=== PATIENT | female | born 1995 ===

== ENCOUNTER 2019-07-30 08:50 | Day surgery (SDC) | payer OTHER ==
[~2019-07-30 08:50] MED LIST: Acetaminophen TAB* 325 MG PO ONE; Buffered Lidocaine 1% SYRIN* 1 ML/SYRINGE INTRADERM ONE; Famotidine IV* 10 MG/ML 2 ML (20 mg) IV ONE; Gabapentin CAP(*) 300 MG PO ONE; Lactated Ringers 1000 ML Bag* 1,000 ML IV SCH
[2019-07-30] MEDS ORDERED: Gabapentin CAP(*) 300 MG ONE (09:06)
[2019-07-30] MEDS ORDERED: Acetaminophen TAB* 325 MG ONE (09:06)
[2019-07-30] MEDS ORDERED: Famotidine IV* 10 MG/ML 2 ML (20 mg) ONE (09:07)
[2019-07-30] MEDS ORDERED: ceFAZolin 2 GM PREMIX in ORs 2 GM/50 ML BAG ONE (09:07)
[2019-07-30] MEDS ORDERED: fentaNYL* 50 MCG/ML 2 ML VIAL (100 MCG VIAL) ONE (09:58)
[2019-07-30] MEDS ORDERED: Midazolam* 1 MG/ML 2 ML VIAL (2 MG) ONE (09:58)
[2019-07-30] MEDS ORDERED: Bupivacaine 0.5% SDV PF* 30ML VIAL ONE ×2 (10:17→10:40)
[2019-07-30] MEDS ORDERED: Lidocaine 2% PF * 5 ML VIAL ONE (10:43)
[2019-07-30] MEDS ORDERED: Propofol* 10 MG/ML 20 ML BTL ONE (10:56)
[2019-07-30] MEDS ORDERED: Ketorolac INJ* 30 MG/ML 1 ML VIAL ONE (10:56)
[2019-07-30] MEDS ORDERED: Ondansetron INJ* 2 MG/ML VIAL ONE (10:56)
[2019-07-30] MEDS ORDERED: Dexamethasone IV* 4 MG/ML 1 ML (4 MG) ONE (10:56)
[2019-07-30 12:16] VITALS: BP 123/75
[2019-07-30] MEDS ORDERED: Ondansetron INJ* 2 MG/ML VIAL IV PRN (13:50)
[2019-07-30] MEDS ORDERED: Naloxone* 0.4 MG/ML 1 ML VIAL IV PRN (13:50)
--- NOTE | 2019-07-30 20:47 | OP ---
DATE OF OPERATION: 07/30/19 [facility] DATE OF : 89 SURGEON: Chantel Bermeo MD PRIVATE WATCHMAN: LINDA Velazquez ANESTHESIA: General. PRE-OP DIAGNOSIS: Ulnar nerve compression at the right elbow. POST-OP DIAGNOSIS: Ulnar nerve compression at the right elbow. OPERATIVE PROCEDURE: Ulnar nerve decompression, right elbow. INDICATIONS: Ayesha is a 24-year-old female who has numbness in the ulnar nerve distribution of her right hand. She has failed conservative treatment with physical therapy and splinting. She presents for an ulnar nerve decompression at the right elbow. ESTIMATED BLOOD LOSS: Zero. TOURNIQUET TIME: About 25 minutes. DESCRIPTION OF PROCEDURE: The patient was brought to the operating room, was given a general anesthetic and placed in the supine position on the operating table with a tourniquet around her right upper arm. The skin of her right upper extremity was prepped and draped in the usual sterile fashion. The upper extremity was exsanguinated and the tourniquet elevated to 250 mmHg. The area of the incision was infiltrated with 10 cc of Marcaine 0.5% plain. A curvilinear incision was made on the ulnar aspect of the elbow centered between the medial epicondyle and the tip of the olecranon process. We dissected bluntly through the subcutaneous tissue down to the ulnar nerve at the cubital tunnel. The nerve was carefully dissected out from the surrounding tissue proximally and the FCU fascia, both superficial and deep, was incised releasing the nerve. The cubital tunnel was also released. The nerve was in good condition. The medial intermuscular septum was divided. There was no subluxation of the nerve. The wound was irrigated and the subcutaneous tissue closed with 3-0 Vicryl. Skin edges were reapproximated with skin jeannie. The wound was dressed with Xeroform, 4x4, Webril, and an Jonnie wrap. The patient tolerated the procedure well and was brought to the recovery room in good condition. [id number] #: [id number] MTDD
== END 2019-07-30 12:24 | disposition home or self-care (01) ==
LOC: OREAST 08:50
PROVIDERS: ATTEND Orthopaedic Surgery
DX: G56.21 Lesion of ulnar nerve, right upper limb (principal); M19.90 Unspecified osteoarthritis, unspecified site; F41.8 Other specified anxiety disorders; M79.7 Fibromyalgia
CPT/HCPCS: 81025; A9270-GY; J0690; J1100; J1885; J2250; J2405; J2704; J3010; J3490